=== PATIENT | female | born 1945 | race Caucasian/White ===

== ENCOUNTER → 2022-05-15 13:27 | Outpatient (CLI) | payer MEDICARE, OTHER, SELFPAY ==
--- NOTE | 2022-05-15 | DI.MRI.S_ITS ---
PROCEDURE: MR LUMBAR SPINE WO CON INDICATIONS: Radiculopathy, lumbar TECHNIQUE: Noncontrast sagittal T1 spin echo and T2 fast echo, sagittal STIR, and T2 fast spin echo through the lumbar spine. In cases with scoliosis, additional coronal T2 fast spin echo may be performed. COMPARISON: [facility], CT, ABDOMEN/PELVIS WITH CONTRAST, 06/07/2015, 20:51. Outside Film, CR, XR LUMBAR SPINE 2 OR 3 VIEWS, 12/25/2021, 11:24. FINDINGS: Image quality: Excellent. Alignment and Curvature: There is normal bony alignment. Bone Marrow: Marrow demonstrates overall normal signal. There is a right superior lateral compression deformity at L3 which is likely similar to the plain film dated December 25, 2021. Some marrow edema is noted within this region. Spinal Cord: Conus medullaris terminates at the L1 level. Visualized cord demonstrates normal signal and size. Paraspinous Soft Tissues: No paravertebral masses. T12-L1: Moderate disc desiccation and height loss. No canal stenosis. No foraminal stenosis. L1-L2: Moderate disc desiccation and height loss. No canal stenosis. No foraminal stenosis. Mild disc desiccation and height loss. Broad-based disc bulge. No canal stenosis. No foraminal narrowing. L2-L3: Moderate disc desiccation and height loss. Superior L3 endplate compression deformity. Mild canal stenosis. Mild bilateral foraminal stenosis. L3-L4: Disc height is preserved. There is severe facet ligamentum flavum hypertrophy. Mild canal stenosis. Mild bilateral foraminal stenosis. L4-L5: Disc height is preserved. Moderate facet ligamentum flavum hypertrophy. Mild canal stenosis. Mild bilateral foraminal stenosis. L5-S1: Broad-based disc bulge. No canal stenosis. Moderate facet ligamentum flavum hypertrophy. No foraminal stenosis. IMPRESSION: 1. Right superior L3 endplate compression deformity which is likely similar to the study dated December 25, 2021. Some marrow edema is present suggesting a subacute or early chronic fracture. 2. Mild canal stenosis at L2-3, L3-4, and L4-5. 3. No significant foraminal narrowing of the lumbar spine. Dictated by: Bri Pavon M.D. on 05/15/2022 at 15:40 Approved by: Bri Pavon M.D. on 05/15/2022 at 15:47
== END ==
PROVIDERS: Family Provider Nurse Practitioner; PCP Family Medicine; Referring Provider Physical Medicine & Rehabilitation; Visit Provider Physical Medicine & Rehabilitation
DX: M47.816 Spondylosis without myelopathy or radiculopathy, lumbar region (principal); M48.061 Spinal stenosis, lumbar region without neurogenic claudication; M43.9 Deforming dorsopathy, unspecified
CPT/HCPCS: 72148

== ENCOUNTER → 2022-10-28 12:23 | Outpatient (CLI) | payer MEDICARE, OTHER, SELFPAY ==
[2022-10-28 13:06] LABS: Add Manual Diff / Slide Review NO; Basophils Absolute Auto 100 /uL (0-100); Basophils Percent Auto 0.7 % (0-2); Eosinophils Absolute Auto 200 /uL (0-450); Eosinophils Percent Auto 2.8 % (2-4); Hematocrit 43.8 % (36-46); Hemoglobin 14.9 g/dL (12.0-16.0); Lymphocytes Absolute Auto 2900 /uL (1100-4500); Lymphocytes Percent Auto 36.3 % (25-40); Mean Corpuscular Hemoglobin 31.2 PG (26-34); Mean Corpuscular Volume 91.6 fL (80-100); Monocytes Absolute Auto 500 /uL (0-900); Monocytes Percent Auto 6.3 % (3-14); Neutrophils Absolute Auto 4300 /uL (1500-7000); Neutrophils Percent Auto 53.9 % (50-75); Platelet Count 188 X10^3/uL (150-400); Red Blood Cell Count 4.78 X10^6/uL (4.0-5.2); Red Cell Distribution Width 13.3 % (11.6-14.8); White Blood Cell Count 7.9 X10^3/uL (4.5-11.0)
[2022-10-28 13:19] LABS: BUN Creatinine Ratio 33.3 (6-22); Blood Urea Nitrogen 22 mg/dL (7-17); Carbon Dioxide 22 mmol/L (22-32); Chloride 108 mmol/L (98-107); Estimated Glomerular Filt Rate > 60 mL/min (>60); Glucose 155 mg/dL (80-110); HEMOLYSIS < 15 (0-50); Potassium 4.3 mmol/L (3.4-5.1); Sodium 137 mmol/L (137-145)
[2022-10-28 14:48] LABS: Appearance Urine UA CLEAR; Bilirubin Urine UA NEGATIVE (NEGATIVE); Color Urine UA YELLOW; Glucose Urine UA 3+ g/dL (Negative); Ketones Urine UA NEGATIVE (NEGATIVE); Leukocyte Esterase Urine UA NEGATIVE (NEGATIVE); Nitrite Urine UA NEGATIVE (Negative); Occult Blood Urine UA NEGATIVE (Negative); Protein Urine UA NEGATIVE (Negative); Urobilinogen Urine UA 0.2 E.U./dL (0.2)
[2022-10-28 14:52] LABS: pH Urine UA 5.5 (4.5-8.0)
[2022-10-28 15:01] LABS: Bacteria Urine None Seen; RBC Urine 0-1/HPF (0-5/HPF); Squamous Epithelial Cell Urine 0-1 /HPF (0-5/HPF); WBC Urine 0-1/HPF (0-5/HPF)
[2022-10-28 15:02] LABS: Culture Indicated Urine Cult Not Indicated
[2022-10-29 05:50] LABS: Labcorp Hemoglobin (Hb) A1c 8.9 % (4.8-5.6)
== END ==
PROVIDERS: PCP Family Medicine; Referring Provider Orthopaedic Surgery; Visit Provider Orthopaedic Surgery
DX: I10 Essential (primary) hypertension (principal); E11.9 Type 2 diabetes mellitus without complications; M25.551 Pain in right hip; Z01.812 Encounter for preprocedural laboratory examination; N39.0 Urinary tract infection, site not specified
CPT/HCPCS: 36415; 80048; 81001; 83036; 85025; 93005

== ENCOUNTER → 2023-05-11 11:58 | Outpatient (CLI) | payer MEDICARE, OTHER, SELFPAY ==
--- NOTE | 2023-05-11 | DI.MRI.S_ITS ---
PROCEDURE: MR SHOULDER RT WO CON INDICATIONS: Impingement syndrome of right shoulder TECHNIQUE: Noncontrast oblique coronal T2 fast spin echo with fat saturation, oblique sagittal T1 spin echo and T2 fast spin echo with fat saturation, axial T1 spin echo and T2 fast spin echo with fat saturation through the shoulder. COMPARISON: None. FINDINGS: Image quality: Excellent. Rotator cuff: Low to moderate grade articular surface partial thickness tear involving distal supraspinatus at its insertion on the humeral head is seen extending to musculotendinous junction. Distal infraspinatus and subscapularis tendinosis is seen. No full-thickness rotator cuff tendon rupture. Sagittal images demonstrate mild supraspinatus muscle atrophy. Bones and bursae: No bone marrow contusions or fractures. [id number] acromioclavicular joint osteoarthritic changes are seen with joint space narrowing and downward osteophyte formation depressing the musculotendinous junction of supraspinatus. Small amount of joint effusion and subacromial subdeltoid bursal fluid is seen, no gross loose bodies. Capsule and soft tissues: There is fraying of superior anterior labrum with T2 hyperintense signal at 1 to 2 o'clock position suggestive of superior anterior labral tear. Degenerative changes are noted involving inferior labrum without definite inferior labral tear. The long head of the biceps tendon demonstrates normal location and morphology. The rotator interval appears normal, without fibrosis. The coracohumeral ligament is normal in thickness. IMPRESSION: 1. Low to moderate grade articular surface partial-thickness tear involving distal supraspinatus extending to musculotendinous junction. Distal infraspinatus and subscapularis tendinosis. No full-thickness rotator cuff tendon rupture. Mild supraspinatus muscle atrophy. 2. [id number] acromioclavicular joint osteoarthritis. No fracture or dislocation. Small amount of joint effusion and subacromial subdeltoid bursal fluid. No gross loose bodies. 3. Subtle fraying of superior anterior labrum at 1 to 2 o'clock position concerning for subtle superior anterior labral tear. Degenerative changes in inferior labrum. Dictated by: Faustino Lockwood M.D. on 05/12/2023 at 9:21 Approved by: Faustino Lockwood M.D. on 05/12/2023 at 9:47
== END ==
PROVIDERS: PCP Family Medicine; Referring Provider Physician Assistant; Visit Provider Physician Assistant
DX: M75.41 Impingement syndrome of right shoulder (principal); M75.111 Incomplete rotator cuff tear or rupture of right shoulder, not specified as traumatic; M19.011 Primary osteoarthritis, right shoulder
CPT/HCPCS: 73221

== ENCOUNTER → 2024-06-14 11:36 | Outpatient (CLI) | payer MEDICARE, OTHER, SELFPAY ==
--- NOTE | 2024-06-14 11:37 | DI.RAD.S_ITS ---
PROCEDURE: XR DEXA AXIAL SKELETON INDICATIONS: POSTMENOPAUSAL COMPARISON: None. FINDINGS: Lumbar Spine: Bone mineral density 1.125 g/cm2, T score 0.7. Left Femoral Neck: Bone mineral density 0.641 g/cm2, T score -1.9. Left Hip: Bone mineral density 0.721 g/cm2, T score -1.8. Fracture Risk Calculation (when applicable): 10-year fracture risk of a major osteoporotic fracture 30% and of a hip fracture 22%. (T score greater or equal to -1.0 to: NORMAL) (T score from -1.1 to -2.4: OSTEOPENIA) (T score less than or equal to -2.5: OSTEOPOROSIS) IMPRESSION: 1. By WHO criteria, patient has osteopenia. 2. High FRAX score, with 10-year fracture risk of a major osteoporotic fracture 30% and of a hip fracture 22%. Follow-up guidelines as follows: Osteoporosis: Consider a repeat DEXA and Vertebral Fracture Assessment (VFA) exam in 2 years or sooner if medically necessary, to reassess this patient's status. Osteopenia: Consider a repeat DEXA in 2-3 years to reassess this patient's status, or if there is a new clinical indication. Normal: Consider a repeat DEXA in 5 years or sooner, or if there is a new clinical indication. All treatment decisions require clinical judgment and consideration of individual patient factors, including patient preferences, comorbidities, previous drug use, risk factors not captured in the FRAX model (e.g., frailty, falls, vitamin D deficiency, increased bone turnover, interval significant decline in bone density ) and possible under- or over-estimation of fracture risk by FRAX. In addition, the NOF Guide recommends that FDA-approved medical therapies be considered in postmenopausal women and men age >= 50 years with a: * Hip or vertebral (clinical or morphometric) fracture * T-score of <=-2.5 at the spine or hip * Ten-year fracture probability by FRAX of >= 3% for hip fracture or >=20% for major osteoporotic fracture. Approved by: Negro Dasilva M.D. on 06/14/2024 at 17:18
== END ==
PROVIDERS: PCP Family Medicine; Referring Provider Family Medicine; Visit Provider Family Medicine
DX: M85.89 Other specified disorders of bone density and structure, multiple sites (principal); Z78.0 Asymptomatic menopausal state
CPT/HCPCS: 77080

== ENCOUNTER 2025-02-10 09:16 | Outpatient (CLI) | payer MEDICARE, OTHER, SELFPAY ==
[2025-02-10 09:40] VITALS: BP 126/60; PULSE 85; RESP 16; TEMP 35.9; O2SAT 96
[2025-02-10 10:03] VITALS: BP 152/67; PULSE 91; RESP 17; O2SAT 92
[2025-02-10 10:10] VITALS: BP 146/70; PULSE 88; RESP 14; O2SAT 96
[2025-02-10] MEDS: LIDOCAINE 2% INJ SDV 5ML 5 ML INJ (10:12)
[2025-02-10 10:16] VITALS: BP 128/66; PULSE 88; RESP 16; O2SAT 98
[2025-02-10 10:27] VITALS: BP 137/67; PULSE 85; RESP 16; O2SAT 96
--- NOTE | 2025-02-10 12:33 | P.PCN_ITS ---
Date/Time/Diagnoses
--- NOTE | 2025-02-10 12:33 | PM.PROC.IR.1 ---
Date/Time/Diagnoses Date of procedure: 02/10/25 Time of procedure: 10:30 Pre-procedure diagnosis: Lumbar spondylosis Post-procedure diagnosis: same Procedure Notes Procedure: Medial branch blocks, bilateral L4-5 and L5-S1 facet joint nerves Indications: Low back pain, lumbar spondylosis Physician: Shaun Plummer Total sedation minutes: 0 Complications: none Procedure in detail & Post-procedure care: Patient is here for the planned procedure today as noted. No significant change since the last office visit. For additional clinical scenario please see those office notes. Focused exam: Vital signs reviewed as charted on intake. Gen: Well developed. No acute distress. CV: RRR, no M/R/G Chest: Non-labored breathing, CTAB. Psych: Alert and well-oriented. Mood/Affect: normal. Patient suitable for the planned procedure today: Yes === The following procedure was performed today: Lumbar Facet Joint Nerve Block (medial branch block) with fluoroscopic guidance ([id number]) Levels Treated: Bilateral L4-5 and L5-S1 facet joint nerves (bilateral L3 and L4 medial branches and L5 dorsal rami) Approach: posterior Soft tissue: mL 2% lidocaine Injectate: 0.8 mL 2% lidocaine at each level Fluoroscopy Agent: Isovue 300-M 1.2 mL Notes: 3.5 in 22 gauge spinal needle utilized and adequate. Preprocedure pain 7/10, postprocedure pain 0/10. Pain diary was provided and she will bring it to follow up. History NIDDM, A1c 7.8, blood glucose this morning 135. Procedure: After discussing the risks, benefits, and alternatives to the procedure, the patient expressed understanding and wished to proceed. The risks include but are not limited to infection, allergic reaction, nerve damage, stroke, paralysis, epidural hematoma, syncope, headache, respiratory or cardiac arrest, spinal cord injury, and scar formation. Informed consent was obtained and all patient questions were answered. The patient was brought to the procedure suite and placed in the prone position. A pre-procedural pause was conducted to verify: correct patient identity, procedure to be performed and as applicable, correct side and site, correct patient position, and any special requirements. Using fluoroscopy, the junction of the transverse process and superior articular process of the target levels were identified. For the L5 dorsal ramus (if targeted), the junction of the superior articular process of the sacrum and the ala was identified. The skin was sterilely prepped and draped in the usual fashion. The skin and subcutaneous tissue were anesthetized with lidocaine. Then using fluoroscopic guidance with multiplanar views, a 22 gauge spinal needle was advanced to each target. After contacting the periosteum and after negative aspiration, 0.2 cc of contrast was injected at each site. Spread of contrast approximated the region of the medial branches/dorsal ramus and there was no evidence of intravascular uptake. The injectate noted above was then injected at each site and the needles were removed. The procedure was repeated for each target level noted above. Multiplanar images were obtained and saved. The patient tolerated the procedure well and was discharged after an appropriate period of observation. If there are any complications, the patient was instructed to call us. The patient is to follow-up with the requesting provider in 1-2 weeks. The patient was instructed to keep a pain diary and bring the results to the follow up appointment. This note was compiled using voice recognition software and therefore may contain typos. Please contact the author with any questions or concerns.
== END 2025-02-10 10:35 | disposition home or self-care (01) ==
PROVIDERS: PCP Physician Assistant; Referring Provider Physical Medicine & Rehabilitation; Visit Provider Physical Medicine & Rehabilitation
DX: M47.816 Spondylosis without myelopathy or radiculopathy, lumbar region (principal)
CPT/HCPCS: 64493; 64494; 82962